=== PATIENT | male | born 1990 | race African-American/Black ===

== ENCOUNTER 2017-04-03 11:49 | Emergency (ER) | payer SELFPAY ==
[~2017-04-03] VITALS: Ht 188 cm; Wt 108.4 kg
[~2017-04-03 11:49] MED LIST: CLIN300C8 PO; HYDR-971 PO
--- NOTE | 2017-04-03 12:34 | PHYS DOC ---
General Chief Complaint: SORE THROAT Stated Complaint: SORE THROAT Time Seen by MD: 11:50 Source: patient Exam Limitations: no limitations Problems: History of Present Illness Initial Comments Patient is a 26-year-old male who comes to the ED complaining of sore throat. Patient states for the past 3-4 days he's had worsening sore throat and ear pain. He's had mild headache and some nausea no measured fever chest pain and trouble breathing neck stiffness rash. He says he was released yesterday from a 5 day inpatient treatment at [facility] for psychiatric issues. States he quit smoking cigarettes a few days ago denies illicit drugs or alcohol use. No trouble breathing no pre-arrival treatment ED vital signs are normal Timing/Duration: last week Severity: moderate Location: ear (R), ear (L), throat Prearrival Treatment: no prearrival treatment Modifying Factors: improves with other Associated Symptoms: sore throat, other Allergies: Coded Allergies: Penicillins (Verified Allergy, Unknown, 01/03/17) Past Medical History Medical History: asthma (anxiety, depression) Surgical History: noncontributory Social History Smoker: quit less than 1 year Alcohol: occasionally Drugs: none Constitutional: denies chills, denies diaphoresis, denies fever, denies malaise Eyes: denies blindness, denies blurred vision, denies drainage Ears: denies dizziness, pain, denies tinnitus, denies bloody discharge, denies clear discharge Nose: denies congestion, denies epistaxis, denies pain Mouth: denies loose teeth, denies pain, denies swelling Throat: see HPI Respiratory: denies cough, denies shortness of breath, denies wheezing Cardiovascular: denies chest pain, denies palpitations, denies syncope Gastrointestinal: see HPI, denies abdominal pain Musculoskeletal: denies back pain, denies joint swelling, denies neck pain Neurological: denies headache, denies numbness, denies paresthesia Physical Exam General Appearance: mild distress, obese Eyes: bilateral eye PERRL, bilateral eye EOMI, bilateral eye other ( conjunctival injection) Ears: bilateral ear other (serous fluid noted bilaterally with excess cerumen in the right canal) Nose: normal inspection Mouth/Throat: other (unable to visualize tonsils are pharynx with patient level of cooperation) Neck: supple, trachea midline Cardiovascular/Respiratory: normal peripheral pulses, normal breath sounds, no respiratory distress Neurologic/Psychiatric: 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 [id number] Tylenol, ibuprofen, diphenhydramine, and/or analgesic throat sprays as needed. Prescription: Z-Mark, prednisone take as directed. Follow-up with her doctor in 5-7 days for recheck. Return to the ED with new or changing symptoms JENNA WHITESIDE DO Apr 03, 2017 12:34
[2017-04-03 12:42] VITALS: BP 137/74
[2017-04-03] MEDS ORDERED: KETOROLAC 60 MG/2 ML VIAL. IM ONE (12:45)
[2017-04-03] MEDS ORDERED: LIDO:MAALOX 1:1 20 ML SINGLE DOSE PO ONE (12:45)
== END 2017-04-03 12:50 | disposition home or self-care (01) ==
LOC: ER 11:49
DX: J02.9 Acute pharyngitis, unspecified (principal); H65.93 Unspecified nonsuppurative otitis media, bilateral; J45.909 Unspecified asthma, uncomplicated; Z87.891 Personal history of nicotine dependence; Z88.0 Allergy status to penicillin
CPT/HCPCS: 87070; 87880; 96372; 99283; J1885

== ENCOUNTER 2017-04-05 02:46 | Emergency (ER) | payer SELFPAY ==
[~2017-04-05] VITALS: Ht 188 cm; Wt 108.4 kg
[2017-04-05 02:46] VITALS: BP 117/69
--- NOTE | 2017-04-05 03:26 | PHYS DOC ---
Past History Past Medical History: Anxiety, Asthma, Depression Past Surgical History: No Surgical History Alcohol Use: Occasionally Drug Use: Marijuana Adult General Chief Complaint Chief Complaint: SORE THROAT HPI HPI Patient is a pleasant 26-year-old male with a history of gastritis, asthma, bipolar disorder, prior suicide attempt, anxiety and recently diagnosed HIV presents with a 6 day history of sore throat who is presently on antibiotics day 3 of Z-Mark daily prednisone with continued sore throat and feeling that he is dehydrated. He denies fever denies change in his voice, denies anterior neck swelling but he says it hurts to swallow and he hasn't been eating or drinking as much. He does not know his CD4 count, he does not know his viral load, he is a newly diagnosed patient with follow-up tomorrow with his primary care doctor. Denies primarily for symptomatic care for sore throat and his chart is not dehydrated. He denies any recent travel outside the country, he says the main gotten HIV from sexual activity. Review of Systems Review of Systems Constitutional: Subjective fevers and chills Eyes: Denies change in visual acuity, redness, or eye pain [] HENT: He complains of sore throat without change in voice Respiratory: Denies cough or shortness of breath [] Cardiovascular: No additional information not addressed in HPI [] GI: Denies abdominal pain, nausea, vomiting, bloody stools or diarrhea [] : Denies dysuria or hematuria [] Musculoskeletal: Denies back pain or joint pain [] Integument: Denies rash or skin lesions [] Neurologic: Denies headache, he does feel generally weak although is no focal neurologic deficits. Allergies Allergies Allergies Coded Allergies Type Severity Reaction Last Updated Verified Penicillins Allergy Unknown 01/03/17 Yes Physical Exam Physical Exam Constitutional: Well developed, well nourished, no acute distress, patient is a little upset he feels tired but nontoxic. HENT: Normocephalic, atraumatic, bilateral external ears normal, oropharynx moist, she has mild erythema with mild tonsillar hypertrophy no clear exudates no evidence of peritonsillar abscess or retropharyngeal abscess buccal mucosal cellulitis or Tj's angina. Is no anterior bogginess to the trachea doubt bacterial tracheitis is no evidence of candidiasis right TM is occluded by wax and left TM unremarkable Eyes: PERRLA, EOMI, conjunctiva normal, no discharge. [] Neck: Normal range of motion, no tenderness, supple, no stridor. [] Cardiovascular:Heart rate regular rhythm, no murmur [] Lungs & Thorax: Bilateral breath sounds clear to auscultation [] Skin: Warm, dry, no erythema, no rash. [] Neurologic: Alert and oriented X 3, normal motor function, normal sensory function, no focal deficits noted. [] Psychologic: Affect normal, judgement normal, mood normal. [] Current Patient Data Lab Results Nursery Laboratory Tests 04/05/17 03:30: Group A Streptococcus Rapid Negative EKG EKG [] Radiology/Procedures Radiology/Procedures [] Course & Med Decision Making Course & Med Decision Making Pertinent Labs and Imaging studies reviewed. (See chart for details) patient with new the diagnosed HIV does not know CD4 count or viral load afebrile at this time the change in voice no obvious signs of candidiasis on physical exam. Patient with a sore throat 6 days likely viral nature negative strep throat test and given steroids and fluids patient feels markedly better. He has follow- up tomorrow with his doctor to review his results of CD4 count and last viral load and starting on empiric HIV treatment. Advise this patient that he may require EGD to rule out esophagitis secondary to candidiasis versus esophageal reflux disease. Impression: Pharyngitis likely viral etiology disposition: PCP follow-up tomorrow as scheduled. Continue antibiotics as described use oral Tylenol or Motrin for discomfort and follow up if you have any questions or concerns. [] Dragon Disclaimer Dragon Disclaimer This chart was dictated in whole or in part using Voice Recognition software in a busy, high-work load, and often noisy Emergency Department environment. It may contain unintended and wholly unrecognized errors or omissions. Departure Departure: Impression: Primary Impression: Pharyngitis Disposition: 01 HOME, SELF-CARE Condition: IMPROVED Referrals: PCPJOSH (PCP) Patient Instructions: Viral and Bacterial Pharyngitis Additional Instructions: This return for any new or increasing symptoms, change in voice anterior neck fullness or stiffness. Written one at 102.2 despite treatment or if you have any questions or concerns. Scripts Doxylamine/Pseudoephedrine/Dm (LORTUSS DM LIQUID) 473 Ml Liquid 473 ML PO TID for 7 Days, LIQUID Prov: ELIAS MENEZES MD 04/05/17 ELIAS MENEZES MD Apr 05, 2017 03:26
[2017-04-05] MEDS ORDERED: IV NORMAL SALINE 1,000ML 1,000 ML IV ONE (03:30)
[2017-04-05] MEDS ORDERED: DEXAMETHASONE SOD PHOS 10 MG/ML VIAL IV ONE (03:30)
[2017-04-05 04:05] LABS: INFLUENZA A PATIENT NEGATIVE (NEGATIVE); INFLUENZA B PATIENT NEGATIVE (NEGATIVE)
[2017-04-05] MEDS ORDERED: [UNRECOGNIZED DRUG - CODE] PO (04:11)
== END 2017-04-05 04:25 | disposition home or self-care (01) ==
LOC: ER 02:46
DX: J02.9 Acute pharyngitis, unspecified (principal); E86.0 Dehydration; J45.909 Unspecified asthma, uncomplicated; F12.10 Cannabis abuse, uncomplicated; Z88.0 Allergy status to penicillin
CPT/HCPCS: 87070; 87804; 87880; 96361; 96374; 99284; J1100; J7030

== ENCOUNTER 2017-06-06 23:17 | Emergency (ER) | payer MEDICAID ==
[~2017-06-06 23:17] MED LIST changes: +[UNRECOGNIZED DRUG - CODE] PO
[2017-06-07 00:16] LABS: BASO # 0.1 x10^3/uL (0.0-0.2); BASO % 1 % (0-3); EOS # 0.1 x10^3/uL (0.0-0.7); EOS % 2 % (0-3); HEMOGLOBIN 14.4 g/dL (13.0-17.5); LYMPH % 41 % (24-48); MEAN CORPUSCULAR HEMOGLOBIN 30 pg (25-35); MEAN CORPUSCULAR HGB CONC 34 g/dL (31-37); MEAN CORPUSCULAR VOLUME 89 fL (79-100); MONO # 0.7 x10^3/uL (0.0-1.1); MONO % 10 % (0-9); NEUT # 3.4 x10^3uL (1.8-7.7); NEUT % 46 % (31-73); PLATELET COUNT 302 x10^3/uL (140-400); RED BLOOD COUNT 4.73 x10^6/uL (4.30-5.70); RED CELL DISTRIBUTION WIDTH 13.9 % (11.5-14.5); WHITE BLOOD COUNT 7.3 x10^3/uL (4.0-11.0)
[2017-06-07 00:28] LABS: ACETAMIN < 2.0 mcg/mL (10-30); SALIC 1.9 mg/dL (2.8-20.0)
[2017-06-07 00:29] LABS: ALBUMIN 3.7 g/dL (3.4-5.0); ALBUMIN/GLOBULIN RATIO 0.8 (1.0-1.7); CREATININE 1.5 mg/dL (0.7-1.3); ETHANOL < 10 mg/dL (0-10); GFR 66.9; POTASSIUM 3.5 mmol/L (3.5-5.1); TOTAL BILIRUBIN 0.2 mg/dL (0.2-1.0); TOTAL PROTEIN 8.2 g/dL (6.4-8.2)
[2017-06-07 01:42] LABS: AMPHETAMINE/METHAMPHETAMINE NEG (NEG); BARBITURATES NEG (NEG); BENZODIAZEPINES NEG (NEG); CANNABINOIDS POS (NEG); COCAINE POS (NEG); METHADONE NEG (NEG); OPIATES NEG (NEG); PHENCYCLIDINE NEG (NEG)
--- NOTE | 2017-06-07 01:58 | ED.ADGEN ---
Past History Past Medical History: Anxiety, Bipolar, Depression Past Surgical History: No Surgical History Alcohol Use: None Drug Use: None Adult General Chief Complaint Chief Complaint suicidal ideation HPI HPI Patient is a 27 y/o male who states he always has suicidal thoughts. today they were worse and he took a knife to start cutting his left forearm. mom took the knife away. pt states he tried cutting himself 2 years ago. he was in [place] in february and started seeing a psychiatrist after that. He thinks he needs to be admitted because he is afraid he will try again Review of Systems Review of Systems Constitutional: Denies fever or chills [] Eyes: Denies change in visual acuity, redness, or eye pain [] HENT: Denies nasal congestion or sore throat [] Respiratory: Denies cough or shortness of breath [] Cardiovascular: No additional information not addressed in HPI [] GI: Denies abdominal pain, nausea, vomiting, bloody stools or diarrhea [] : Denies dysuria or hematuria [] Musculoskeletal: Denies back pain or joint pain [] Integument: Denies rash or skin lesions [] Neurologic: Denies headache, focal weakness or sensory changes [] Endocrine: Denies polyuria or polydipsia PSYCH: suicidal thoughts Current Medications Current Medications Current Medications Medications (Trade) Dose Ordered Sig/Peter Start Time Stop Time Status Last Admin Dose Admin Alprazolam (Xanax) 0.5 mg 1X ONCE 06/07/17 03:00 06/07/17 03:02 DC 06/07/17 02:48 0.5 MG Allergies Allergies Allergies Coded Allergies Type Severity Reaction Last Updated Verified Penicillins Allergy Unknown 01/03/17 Yes Physical Exam Physical Exam Constitutional: Well developed, well nourished, no acute distress, non-toxic appearance. [] HENT: Normocephalic, atraumatic, bilateral external ears normal, oropharynx moist, no oral exudates, nose normal. [] Eyes: PERRLA, EOMI, conjunctiva normal, no discharge. [] Neck: Normal range of motion, no tenderness, supple, no stridor. [] Cardiovascular:Heart rate regular rhythm, no murmur [] Lungs & Thorax: Bilateral breath sounds clear to auscultation [] Abdomen: Bowel sounds normal, soft, no tenderness, no masses, no pulsatile masses. [] Skin: Warm, dry, no erythema, no rash. superficial abrasion to left mid volar forearm Back: No tenderness, no CVA tenderness. [] Extremities: No tenderness, no cyanosis, no clubbing, ROM intact, no edema. [] Neurologic: Alert and oriented X 3, normal motor function, normal sensory function, no focal deficits noted. [] Psychologic: flat affect , judgement normal, depressed. Current Patient Data Vital Signs Vital Signs Date Time Temp Pulse Resp B/P (MAP) Pulse Ox O2 Delivery O2 Flow Rate FiO2 06/06/17 23:30 98.5 83 18 99 Room Air Lab Results Laboratory Tests Test 06/06/17 00:01 06/06/17 01:06 White Blood Count 7.3 x10^3/uL (4.0-11.0) Red Blood Count 4.73 x10^6/uL (4.30-5.70) Hemoglobin 14.4 g/dL (13.0-17.5) Hematocrit 42.0 % (39.0-53.0) Mean Corpuscular Volume 89 fL (79-100) Mean Corpuscular Hemoglobin 30 pg (25-35) Mean Corpuscular Hemoglobin Concent 34 g/dL (31-37) Red Cell Distribution Width 13.9 % (11.5-14.5) Platelet Count 302 x10^3/uL (140-400) Neutrophils (%) (Auto) 46 % (31-73) Lymphocytes (%) (Auto) 41 % (24-48) Monocytes (%) (Auto) 10 % (0-9) H Eosinophils (%) (Auto) 2 % (0-3) Basophils (%) (Auto) 1 % (0-3) Neutrophils # (Auto) 3.4 x10^3uL (1.8-7.7) Lymphocytes # (Auto) 3.0 x10^3/uL (1.0-4.8) Monocytes # (Auto) 0.7 x10^3/uL (0.0-1.1) Eosinophils # (Auto) 0.1 x10^3/uL (0.0-0.7) Basophils # (Auto) 0.1 x10^3/uL (0.0-0.2) Sodium Level 137 mmol/L (136-145) Potassium Level 3.5 mmol/L (3.5-5.1) Chloride Level 102 mmol/L (98-107) Carbon Dioxide Level 24 mmol/L (21-32) Anion Gap 11 (6-14) Blood Urea Nitrogen 14 mg/dL (8-26) Creatinine 1.5 mg/dL (0.7-1.3) H Estimated GFR (Cockcroft-Gault) 66.9 BUN/Creatinine Ratio 9 (6-20) Glucose Level 110 mg/dL (70-99) H Calcium Level 9.0 mg/dL (8.5-10.1) Total Bilirubin 0.2 mg/dL (0.2-1.0) Aspartate Amino Transferase (AST) 11 U/L (15-37) L Alanine Aminotransferase (ALT) 36 U/L (16-63) Alkaline Phosphatase 94 U/L (46-116) Total Protein 8.2 g/dL (6.4-8.2) Albumin 3.7 g/dL (3.4-5.0) Albumin/Globulin Ratio 0.8 (1.0-1.7) L Salicylates Level 1.9 mg/dL (2.8-20.0) L Salicylate Last Dose Date 05/30/17 Salicylate Last Dose Time 0700 Acetaminophen Level < 2.0 mcg/mL (10-30) L Acetaminophen Last Dose Date 05/30/17 Acetaminophen Last Dose Time 0700 Ethyl Alcohol Level < 10 mg/dL (0-10) Urine Opiates Screen Neg (NEG) Urine Methadone Screen Neg (NEG) Urine Barbiturates Neg (NEG) Urine Phencyclidine Screen Neg (NEG) Urine Amphetamine/Methamphetamine Neg (NEG) Urine Benzodiazepines Screen Neg (NEG) Urine Cocaine Screen Pos (NEG) Urine Cannabinoids Screen Pos (NEG) Urine Ethyl Alcohol Neg (NEG) EKG EKG [] Radiology/Procedures Radiology/Procedures [] Course & Med Decision Making Course & Med Decision Making Pertinent Labs and Imaging studies reviewed. (See chart for details) pt was accepted for admission [] Final Impression Final Impression suicidal ideation[] Problems: Dragon Disclaimer Dragon Disclaimer This electronic medical record was generated, in whole or in part, using a voice recognition dictation system. JOE BENNETT MD Jun 07, 2017 01:58
[2017-06-07] MEDS ORDERED: ALPRAZolam 0.25 MG TABLET PO ONE (03:00)
[2017-06-07 05:35] VITALS: BP 133/85
== END 2017-06-07 05:45 ==
LOC: ER 23:17
DX: R45.851 Suicidal ideations (principal); F41.9 Anxiety disorder, unspecified; F31.9 Bipolar disorder, unspecified; Z88.0 Allergy status to penicillin
CPT/HCPCS: 36415; 80053; 80307; 85027; 99285; G0480; G0479

== ENCOUNTER 2017-08-09 17:58 | Emergency (ER) | payer SELFPAY ==
[~2017-08-09] VITALS: Ht 182.9 cm; Wt 113.4 kg
[2017-08-09] MEDS ORDERED: IV NORMAL SALINE 1,000ML 1,000 ML IV ONE (18:30)
[2017-08-09 18:31] VITALS: BP 128/77
[2017-08-09] MEDS ORDERED: KETOROLAC 15 MG/ML VIAL. IV ONE (19:15)
[2017-08-09 19:19] LABS: BASO % 1 % (0-3); EOS # 0.1 x10^3/uL (0.0-0.7); EOS % 1 % (0-3); HEMATOCRIT 43.9 % (39.0-53.0); HEMOGLOBIN 15.1 g/dL (13.0-17.5); LYMPH # 2.5 x10^3/uL (1.0-4.8); LYMPH % 35 % (24-48); MEAN CORPUSCULAR HEMOGLOBIN 31 pg (25-35); MEAN CORPUSCULAR HGB CONC 35 g/dL (31-37); MEAN CORPUSCULAR VOLUME 91 fL (79-100); MONO # 0.9 x10^3/uL (0.0-1.1); MONO % 13 % (0-9); NEUT # 3.6 x10^3uL (1.8-7.7); NEUT % 50 % (31-73); PLATELET COUNT 338 x10^3/uL (140-400); RED BLOOD COUNT 4.83 x10^6/uL (4.30-5.70); RED CELL DISTRIBUTION WIDTH 15.1 % (11.5-14.5); WHITE BLOOD COUNT 7.1 x10^3/uL (4.0-11.0)
[2017-08-09] MEDS ORDERED: AMOX500T PO (19:31)
--- NOTE | 2017-08-09 19:32 | PHYS DOC ---
Past History Past Medical History: Asthma, HIV Past Surgical History: No Surgical History Alcohol Use: None Drug Use: None Adult General Chief Complaint Chief Complaint: EARACHE/EAR PAIN HPI HPI Patient is a 27 year old M who presents with bilateral ear pain worse on the right. Cy describes fever sweats and chills over the past 2-3 days. He also describes nasal congestion and drainage. His condition is complicated by HIV positive status. Review of Systems Review of Systems Constitutional: Denies fever or chills [] Eyes: Denies change in visual acuity, redness, or eye pain [] HENT: Negative except history of present illness Respiratory: Denies cough or shortness of breath [] Cardiovascular: No additional information not addressed in HPI [] GI: Denies abdominal pain, nausea, vomiting, bloody stools or diarrhea [] : Denies dysuria or hematuria [] Musculoskeletal: Denies back pain or joint pain [] Integument: Denies rash or skin lesions [] Neurologic: Denies headache, focal weakness or sensory changes [] Endocrine: Denies polyuria or polydipsia [] Family History Family History Noncontributory Current Medications Current Medications Medications reviewed Current Medications Medications (Trade) Dose Ordered Sig/Peter Start Time Stop Time Status Last Admin Dose Admin Ketorolac Tromethamine (Toradol) 15 mg 1X ONCE 08/09/17 19:15 08/09/17 19:16 DC 08/09/17 19:05 15 MG Sodium Chloride 1,000 ml @ 1,000 mls/hr 1X ONCE 08/09/17 18:30 08/09/17 19:29 08/09/17 19:05 1,000 MLS/HR Allergies Allergies Allergies Coded Allergies Type Severity Reaction Last Updated Verified Penicillins Allergy Unknown 08/09/17 Yes Physical Exam Physical Exam Constitutional: Well developed, well nourished, no acute distress, non-toxic appearance. [] HENT: Normocephalic, atraumatic, bilateral TM erythema mild to moderate bilateral nasal congestion with mild drainage. Eyes: EOMI, conjunctiva normal, no discharge. [] Neck: Normal range of motion, no tenderness, supple, no stridor. [] Cardiovascular:Heart rate regular rhythm, no murmur [] Lungs & Thorax: Bilateral breath sounds clear to auscultation [] Abdomen: Bowel sounds normal, soft, no tenderness, no masses, no pulsatile masses. [] Skin: Warm, dry, no erythema, no rash. [] Neurologic: Alert and oriented X 3, normal motor function, normal sensory function, no focal deficits noted. [] Psychologic: Affect normal, judgement normal, mood normal. [] Current Patient Data Vital Signs Vital Signs Date Time Temp Pulse Resp B/P (MAP) Pulse Ox O2 Delivery O2 Flow Rate FiO2 08/09/17 18:31 100.6 106 16 98 Room Air Lab Results Laboratory Tests Test 08/09/17 18:55 White Blood Count 7.1 x10^3/uL (4.0-11.0) Red Blood Count 4.83 x10^6/uL (4.30-5.70) Hemoglobin 15.1 g/dL (13.0-17.5) Hematocrit 43.9 % (39.0-53.0) Mean Corpuscular Volume 91 fL (79-100) Mean Corpuscular Hemoglobin 31 pg (25-35) Mean Corpuscular Hemoglobin Concent 35 g/dL (31-37) Red Cell Distribution Width 15.1 % (11.5-14.5) H Platelet Count 338 x10^3/uL (140-400) Neutrophils (%) (Auto) 50 % (31-73) Lymphocytes (%) (Auto) 35 % (24-48) Monocytes (%) (Auto) 13 % (0-9) H Eosinophils (%) (Auto) 1 % (0-3) Basophils (%) (Auto) 1 % (0-3) Neutrophils # (Auto) 3.6 x10^3uL (1.8-7.7) Lymphocytes # (Auto) 2.5 x10^3/uL (1.0-4.8) Monocytes # (Auto) 0.9 x10^3/uL (0.0-1.1) Eosinophils # (Auto) 0.1 x10^3/uL (0.0-0.7) Basophils # (Auto) 0.0 x10^3/uL (0.0-0.2) Course & Med Decision Making Course & Med Decision Making Pertinent Labs and Imaging studies reviewed. (See chart for details) Cy declined flu swab and wish to leave prior to completion of his labs. He was started on oral antibiotics and was given a prescription for antibiotics. Dragon Disclaimer Dragon Disclaimer This chart was dictated in whole or in part using Voice Recognition software in a busy, high-work load, and often noisy Emergency Department environment. It may contain unintended and wholly unrecognized errors or omissions. Departure Departure: Impression: Primary Impression: Bilateral otitis media with effusion Additional Impression: Acute rhinitis Disposition: 01 HOME, SELF-CARE Condition: STABLE Referrals: DARIUS MONTES (PCP) Patient Instructions: Otitis Media with Effusion Additional Instructions: Cy was seen in the emergency department for ear pain. No emergency medical condition was found on history or physical exam. He was started on oral antibiotics for ear infections in the right and left ear. He was also advised to use nasal saline rinses and nasal steroid spray. He was advised return to the emergency room if he develops new or worsening symptoms. Is also advised follow-up with his primary care doctor in the next 3-5 days for further management. Scripts Amoxicillin (AMOXICILLIN) 500 Mg Tablet 2 TAB PO BID, #40 TAB Prov: GEORGETTE CARTER MD 08/09/17 Problem Qualifiers Additional Impression: Acute rhinitis Rhinitis type: unspecified Qualified Codes: J00 - Acute nasopharyngitis [ common cold] GEORGETTE CARTER MD Aug 09, 2017 19:32
[2017-08-09 19:33] LABS: ALBUMIN 3.7 g/dL (3.4-5.0); ALBUMIN/GLOBULIN RATIO 0.8 (1.0-1.7); CREATININE 1.4 mg/dL (0.7-1.3); GFR 72.5; TOTAL BILIRUBIN 0.2 mg/dL (0.2-1.0); TOTAL PROTEIN 8.1 g/dL (6.4-8.2)
[2017-08-09] MEDS ORDERED: AMOXICILLIN 250 MG CAPSULE PO ONE (19:45)
== END 2017-08-09 19:40 | disposition home or self-care (01) ==
LOC: ER 17:58
DX: H65.93 Unspecified nonsuppurative otitis media, bilateral (principal); J00 Acute nasopharyngitis [common cold]; J45.909 Unspecified asthma, uncomplicated; Z21 Asymptomatic human immunodeficiency virus [HIV] infection status; Z88.0 Allergy status to penicillin
CPT/HCPCS: 36415; 80053; 83605; 85025; 96361; 96374; 99284; J1885; J7030

== ENCOUNTER 2018-03-05 10:39 | Emergency (ER) | payer MEDICAID ==
[~2018-03-05] VITALS: Ht 182.9 cm; Wt 111.6 kg
[~2018-03-05 10:39] MED LIST changes: +AMOX500T PO
[2018-03-05] MEDS ORDERED: HYDR-971 PO (11:49)
[2018-03-05] MEDS ORDERED: CEPH-264 PO (11:49)
--- NOTE | 2018-03-05 11:49 | PHYS DOC ---
Past History Past Medical History: Asthma, HIV, Other Past Surgical History: No Surgical History Alcohol Use: Occasionally Drug Use: Marijuana Adult General Chief Complaint Chief Complaint: SKIN PROBLEM HPI HPI 27-year-old male patient with history of HIV complaining of painful lesion in medial side of right thigh for months that getting more painful for the last 1 month. He denies drainage of pus or erythema, fever and chills, history of MRSA abscesses. Patient states he had this problem for several years off and on. Patient did not follow-up with his HIV clinic regarding this problem. Review of Systems Review of Systems Constitutional: Denies fever or chills [] Eyes: Denies change in visual acuity, redness, or eye pain [] HENT: Denies nasal congestion or sore throat [] Respiratory: Denies cough or shortness of breath [] Cardiovascular: No additional information not addressed in HPI [] GI: Denies abdominal pain, nausea, vomiting, bloody stools or diarrhea [] : Denies dysuria or hematuria [] Musculoskeletal: Denies back pain or joint pain [] Integument: Reports a skin lesion] Neurologic: Denies headache, focal weakness or sensory changes [] Endocrine: Denies polyuria or polydipsia [] All other systems were reviewed and found to be within normal limits, except as documented in this note. Current Medications Current Medications Current Medications Medications (Trade) Dose Ordered Sig/Peter Start Time Stop Time Status Last Admin Dose Admin Acetaminophen/ Hydrocodone Bitart (Lortab 5/325) 1 tab 1X ONCE 03/05/18 12:10 03/05/18 12:11 Allergies Allergies Allergies Coded Allergies Type Severity Reaction Last Updated Verified Penicillins Allergy Unknown 08/09/17 Yes Physical Exam Physical Exam Constitutional: Well developed, well nourished, mild distress, non-toxic appearance. [] HENT: Normocephalic, atraumatic Eyes: PERRLA, EOMI, conjunctiva normal, no discharge. [] Neck: Normal range of motion, no tenderness, supple, no stridor. [] Cardiovascular:Heart rate regular rhythm, no murmur [] Lungs & Thorax: Bilateral breath sounds clear to auscultation []] Back: No tenderness, no CVA tenderness. [] Extremities: 2x 2 cm dermoid cyst in upper right medial thigh mild tenderness without fluctuation or erythema or sign of infection Neurologic: Alert and oriented X 3, normal motor function, normal sensory function, no focal deficits noted. [] Psychologic: Anxious, judgement normal, mood normal. [] Current Patient Data Vital Signs Vital Signs Date Time Temp Pulse Resp B/P (MAP) Pulse Ox O2 Delivery O2 Flow Rate FiO2 03/05/18 10:39 98.1 98 18 96 Room Air EKG EKG [] Radiology/Procedures Radiology/Procedures [] Course & Med Decision Making Course & Med Decision Making Evaluation of patient in ER showed 27-year-old male patient with history of HIV complaining of a tender mass in medial side of right time for 4 months and asking for removing or opening the abscess today. Patient did not have abscess or acute infection and instructed to follow-up with HIV clinic. Dragon Disclaimer Dragon Disclaimer This electronic medical record was generated, in whole or in part, using a voice recognition dictation system. Departure Departure: Impression: Primary Impression: Sebaceous cyst Additional Impressions: HIV (human immunodeficiency virus infection) Anxiety Disposition: HOME, SELF-CARE (At ) Condition: IMPROVED Referrals: DARIUS MONTES (PCP) Patient Instructions: Epidermal Cyst Additional Instructions: Follow-up with your HIV clinic in 2 or 3 days Return to ER if not getting better Scripts Cephalexin (KEFLEX) 500 Mg Capsule 1 CAP PO TID, #30 CAP Prov: GRAEME GARRIDO MD 03/05/18 Hydrocodone Bit/Acetaminophen (NORCO 5-325 TABLET) 1 Each Tablet 1 TAB PO PRN Q6HRS Y for PAIN, #14 TAB 0 Refills Prov: GRAEME GARRIDO MD 03/05/18 Problem Qualifiers GRAEME GARRIDO MD March 05, 2018 11:49
[2018-03-05 11:59] VITALS: BP 133/82
[2018-03-05] MEDS ORDERED: HYDROcodone/APAP 5/325MG 1 TAB TABLET PO ONE (12:10)
== END 2018-03-05 11:59 | disposition home or self-care (01) ==
LOC: ER 10:39
DX: L72.3 Sebaceous cyst (principal); Z21 Asymptomatic human immunodeficiency virus [HIV] infection status; F41.9 Anxiety disorder, unspecified; J45.909 Unspecified asthma, uncomplicated; F12.10 Cannabis abuse, uncomplicated; Z88.0 Allergy status to penicillin
CPT/HCPCS: 99283

== ENCOUNTER 2019-02-11 11:05 | Emergency (ER) | payer OTHER ==
[~2019-02-11] VITALS: Ht 182.9 cm; Wt 103.4 kg
[~2019-02-11 11:05] MED LIST changes: +CEPH-264 PO; +HYDR-3165 PO; -HYDR-971 PO
[2019-02-11 11:10] VITALS: BP 135/84
[2019-02-11] MEDS ORDERED: IV NORMAL SALINE 1,000ML 1,000 ML IV ONE (11:30)
--- NOTE | 2019-02-11 11:30 | PHYS DOC ---
Past History Past Medical History: Asthma, HIV, Other Past Surgical History: No Surgical History Alcohol Use: Occasionally Drug Use: Marijuana Adult General Chief Complaint Chief Complaint: DIARRHEA HPI HPI 28-year-old male presents with rectal bleeding. Patient states he has had rectal bleeding for 5 days. The first episode was bright red and the toilet was just blood. His most recent episode is mixed with diarrhea. He believes that the blood might be slightly darker, but does not say its maroon or black. He is not exactly sure. He does have rectal pain with defecation. The patient has also been having some epigastric abdominal pain today which is new. It is a crampy pain. The patient was seen in another emergency room yesterday for shortness of breath and did not mention his rectal bleeding to them. Patient has not been feeling dizzy. He is HIV positive. The patient was told on his last colonoscopy that he had precancerous cells. Patient denies nausea, vomiting , fever, or chills. Review of Systems Review of Systems Constitutional: Denies fever or chills [] Eyes: Denies change in visual acuity, redness, or eye pain [] HENT: Denies nasal congestion or sore throat [] Respiratory: Denies cough or shortness of breath [] Cardiovascular: No additional information not addressed in HPI [] GI: bloody stools with diarrhea. Epigastric abdominal pain. Denies nausea, vomiting. [] : Denies dysuria or hematuria [] Musculoskeletal: Denies back pain or joint pain [] Integument: Denies rash or skin lesions [] Neurologic: Denies headache, focal weakness or sensory changes [] Endocrine: Denies polyuria or polydipsia [] All other systems were reviewed and found to be within normal limits, except as documented in this note. Current Medications Current Medications Current Medications Medications (Trade) Dose Ordered Sig/Peter Start Time Stop Time Status Last Admin Dose Admin Sodium Chloride 1,000 ml @ 1,000 mls/hr 1X ONCE 02/11/19 11:30 02/11/19 12:29 UNV Allergies Allergies Allergies Coded Allergies Type Severity Reaction Last Updated Verified Penicillins Allergy Unknown 08/09/17 Yes Physical Exam Physical Exam Constitutional: Well developed, well nourished, no acute distress, non-toxic appearance. [] HENT: Normocephalic, atraumatic, bilateral external ears normal, oropharynx moist, no oral exudates, nose normal. [] Eyes: PERRLA, EOMI, conjunctiva normal, no discharge. [] Neck: Normal range of motion, no tenderness, supple, no stridor. [] Cardiovascular:Heart rate regular rhythm, no murmur [] Lungs & Thorax: Bilateral breath sounds clear to auscultation [] Abdomen: Bowel sounds normal, soft, no tenderness, no masses, no pulsatile masses. [] Skin: Warm, dry, no erythema, no rash. [] Back: No tenderness, no CVA tenderness. [] Extremities: No tenderness, no cyanosis, no clubbing, ROM intact, no edema. [] Neurologic: Alert and oriented X 3, normal motor function, normal sensory function, no focal deficits noted. [] Psychologic: Affect normal, judgement normal, mood normal. Rectal: Normal external exam with single skin tag, no obvious hemorrhoids. Digital rectal exam showed nonbloody stool in the rectal vault. No significant pain.[] EKG EKG [] Radiology/Procedures Radiology/Procedures [] Impressions: EXAM: Abdomen and pelvis CT with intravenous contrast. HISTORY: Nausea and vomiting. TECHNIQUE: Computed tomographic images of the abdomen and pelvis were obtained following the administration of 70 cc Omnipaque 300 intravenous contrast. Multiplanar reformatting was performed. *One or more of the following individualized dose reduction techniques were utilized for this examination: 1. Automated exposure control. 2. Adjustment of the mA and/or kV according to patient size. 3. Use of iterative reconstruction technique. COMPARISON: None. FINDINGS: Evaluation of the lower thorax demonstrates posterior dependent atelectasis. There are 3 hypodense lesions within the liver, the largest of which measures 3.4 cm with attenuation consistent with a cyst. There is fatty infiltration of the liver along the falciform ligament. The gallbladder, pancreas, spleen, adrenal glands and kidneys are unremarkable. There is circumferential mucosal thickening involving fluid-filled mid and distal small bowel and colon. The appendix is normal in appearance. There are multiple prominent lymph nodes throughout the root of the mesentery and pericecal distribution. No transition point is seen to suggest obstruction. There is no free air. The bladder is unremarkable.. No suspicious osseous lesion is seen. IMPRESSION: 1. Segmental mucosal thickening involving fluid-filled loops of mid small bowel and the colon, consistent with enterocolitis of infectious or inflammatory etiologies. There is suspected reactive lymphadenopathy throughout the root of the mesentery and pericecal distribution. 2. Hepatic cysts. Electronically signed by: Gladys Shelton MD (02/11/2019 12:25 PM) [facility] DICTATED AND SIGNED BY: GLADYS SHELTON MD DATE: 02/11/19 7104 CC: MEHUL SHAH DO; DARIUS MONTES ~ Course & Med Decision Making Course & Med Decision Making Pertinent Labs and Imaging studies reviewed. (See chart for details) The patient's CT is suggestive of enterocolitis of infectious or inflammatory origin. See official CT report for details. I will treat the patient with Flagyl for 10 days. I have also recommended the patient follow up with his primary physician and possibly GI. If this is not infectious in origin, the patient may need different medication and/or further workup. He may need another colonoscopy. His stool occult was positive for blood and his hemoglobin is normal. I do not believe the patient needs to be admitted to the hospital at this time. He is stable for discharge at this time. Patient was given 40 mEq of potassium for his mild hypokalemia. I have discussed the patient's results with his primary care physician. They will follow up with the patient. [] Dragon Disclaimer Dragon Disclaimer This electronic medical record was generated, in whole or in part, using a voice recognition dictation system. Departure Departure: Impression: Primary Impression: Enterocolitis Additional Impressions: Hypokalemia Rectal bleeding Disposition: HOME, SELF-CARE Condition: STABLE Referrals: DARIUS MONTES (PCP) Patient Instructions: Colitis Scripts Hydrocodone Bit/Acetaminophen (NORCO 5-325 TABLET) 1 Each Tablet 1 TAB PO PRN Q6HRS PRN for PAIN, #10 TAB 0 Refills Prov: MEHUL SHAH DO 02/11/19 Metronidazole (FLAGYL) 500 Mg Tablet 1 TAB PO TID for enterocolitis for 10 Days, #30 TAB Prov: MEHUL SHAH DO 02/11/19 Problem Qualifiers MEHUL SHAH DO Feb 11, 2019 11:30
[2019-02-11 11:44] LABS: BASO % 0 % (0-3); EOS % 0 % (0-3); HEMATOCRIT 45.1 % (39.0-53.0); HEMOGLOBIN 15.2 g/dL (13.0-17.5); LYMPH # 2.2 x10^3/uL (1.0-4.8); LYMPH % 37 % (24-48); MEAN CORPUSCULAR HEMOGLOBIN 30 pg (25-35); MEAN CORPUSCULAR HGB CONC 34 g/dL (31-37); MEAN CORPUSCULAR VOLUME 89 fL (79-100); MONO # 0.7 x10^3/uL (0.0-1.1); MONO % 12 % (0-9); NEUT % 51 % (31-73); PLATELET COUNT 351 x10^3/uL (140-400); RED BLOOD COUNT 5.08 x10^6/uL (4.30-5.70); RED CELL DISTRIBUTION WIDTH 13.4 % (11.5-14.5); WHITE BLOOD COUNT 5.9 x10^3/uL (4.0-11.0)
[2019-02-11 11:56] LABS: ALBUMIN 3.8 g/dL (3.4-5.0); ALBUMIN/GLOBULIN RATIO 0.8 (1.0-1.7); CALCIUM 9.5 mg/dL (8.5-10.1); CREATININE 1.3 mg/dL (0.7-1.3); GFR 78.4; POTASSIUM 3.3 mmol/L (3.5-5.1); TOTAL BILIRUBIN 0.5 mg/dL (0.2-1.0); TOTAL PROTEIN 8.8 g/dL (6.4-8.2)
[2019-02-11] MEDS ORDERED: IOHEXOL 300 MG/ML 75 ML VIAL. IV ONE (12:00)
--- NOTE | 2019-02-11 12:28 | RAD ---
EXAM: Abdomen and pelvis CT with intravenous contrast. HISTORY: Nausea and vomiting. TECHNIQUE: Computed tomographic images of the abdomen and pelvis were obtained following the administration of 70 cc Omnipaque 300 intravenous contrast. Multiplanar reformatting was performed. *One or more of the following individualized dose reduction techniques were utilized for this examination: 1. Automated exposure control. 2. Adjustment of the mA and/or kV according to patient size. 3. Use of iterative reconstruction technique. COMPARISON: None. FINDINGS: Evaluation of the lower thorax demonstrates posterior dependent atelectasis. There are 3 hypodense lesions within the liver, the largest of which measures 3.4 cm with attenuation consistent with a cyst. There is fatty infiltration of the liver along the falciform ligament. The gallbladder, pancreas, spleen, adrenal glands and kidneys are unremarkable. There is circumferential mucosal thickening involving fluid-filled mid and distal small bowel and colon. The appendix is normal in appearance. There are multiple prominent lymph nodes throughout the root of the mesentery and pericecal distribution. No transition point is seen to suggest obstruction. There is no free air. The bladder is unremarkable.. No suspicious osseous lesion is seen. IMPRESSION: 1. Segmental mucosal thickening involving fluid-filled loops of mid small bowel and the colon, consistent with enterocolitis of infectious or inflammatory etiologies. There is suspected reactive lymphadenopathy throughout the root of the mesentery and pericecal distribution. 2. Hepatic cysts. Electronically signed by: Gladys Shelton MD (02/11/2019 12:25 PM) [place] [id number]
[2019-02-11] MEDS ORDERED: HYDROmorphone PF 1 MG/ML DISP.SYRIN IV ONE (12:30)
[2019-02-11] MEDS ORDERED: ONDANSETRON PF 4 MG/2 ML VIAL. IV ONE (12:30)
[2019-02-11] MEDS ORDERED: POTASSIUM CHLORIDE 20 MEQ TABLET.ER. PO ONE (12:30)
[2019-02-11] MEDS ORDERED: METR500T PO (12:52)
[2019-02-11 12:55] LABS: FECAL OB PT POSITIVE (NEG)
[2019-02-11] MEDS ORDERED: HYDR-3165 PO (13:06)
== END 2019-02-11 13:15 | disposition home or self-care (01) ==
LOC: ER 11:05
DX: K52.9 Noninfective gastroenteritis and colitis, unspecified (principal); E87.6 Hypokalemia; K62.5 Hemorrhage of anus and rectum; J45.909 Unspecified asthma, uncomplicated; Z88.0 Allergy status to penicillin
CPT/HCPCS: 36415; 74177; 80053; 82274; 85025; 96361; 96374; 96375; 99285; J1170; J2405; Q9967; J7030

== ENCOUNTER 2019-04-13 20:05 | Emergency (ER) | payer OTHER ==
[~2019-04-13] VITALS: Ht 182.9 cm; Wt 96.8 kg
[~2019-04-13 20:05] MED LIST changes: +METR500T PO
[2019-04-13 20:15] VITALS: BP 141/85
--- NOTE | 2019-04-13 20:15 | ED.ADGEN ---
Past History Past Medical History: Asthma, HIV, Other Past Surgical History: No Surgical History Alcohol Use: Occasionally Drug Use: Marijuana Adult General Chief Complaint Chief Complaint ".. I got bad rectal pain.. but you can not examine me unless you give me some strong narcotics.. I usually go to .. because I ve had HIV and they take care of everything for me.. I notice I have some bright red blood in my last stool.. and it hurt bad.. I got some kind growth down there.. but I need some strong narcotics lst..." [facility] HPI Patient is a 28 year old male who presents with above hx and complaints rectal outlet bleeding and pain with defecation x several days. . Patient reports all his H IV care and maintenance care is done at . Patient currently refusing any exam and was given narcotics first. Advised patient he would not receive n arcotics until at least occurs recheck exam he stated he would go to . Take patient at least let me do a cursory exam however he refused. Patient denies history of constipation. Patient denies history of recent rectal sex. No recent travel. No specific ill contacts. Has hx of Asthma and Colitis. Review of Systems Review of Systems Constitutional: Denies fever or chills [] Eyes: Denies change in visual acuity, redness, or eye pain [] HENT: Denies nasal congestion or sore throat [] Respiratory: Denies cough or shortness of breath [] Cardiovascular: No additional information not addressed in [facility] [] GI: Denies abdominal pain, nausea, vomiting, diarrhea [.patient]complains of bright red blood and pain with defecation : Denies dysuria or hematuria [] Musculoskeletal: Denies back pain or joint pain [] Integument: Denies rash or skin lesions [] Neurologic: Denies headache, focal weakness or sensory changes [] Endocrine: Denies polyuria or polydipsia [] All other systems were reviewed and found to be within normal limits, except as documented in this note. Family History Family History Noncontributory Current Medications Current Medications See nursing for home meds Allergies Allergies Allergies Coded Allergies Type Severity Reaction Last Updated Verified Penicillins Allergy Unknown 04/13/19 Yes Physical Exam Physical Exam Constitutional: Moderate distress, non-toxic appearance. [] HENT: Normocephalic, atraumatic, bilateral external ears normal, oropharynx moist, no oral exudates, nose normal. [] Eyes: PERRLA, EOMI, conjunctiva normal, no discharge. [] Neck: Normal range of motion, no tenderness, supple, no stridor. [] Cardiovascular: Refused exam Lungs & Thorax: Refused exam Abdomen: Refuses exam[] Skin: Refused exam Back: Refused exam] Extremities: Am Lipitor without problem Neurologic: Alert and oriented X 3, normal motor function, normal sensory function, no focal deficits noted. [] Psychologic: Affect anxious, judgement lacks insight to medical care, mood depre ssed and angry Current Patient Data Vital Signs Vital Signs Date Time Temp Pulse Resp B/P (MAP) Pulse Ox O2 Delivery O2 Flow Rate FiO2 04/13/19 20:15 98.4 100 20 99 Room Air 04/13/19 20:15 141/85 (103) EKG EKG [] Radiology/Procedures Radiology/Procedures [] Course & Med Decision Making Course & Med Decision Making Pertinent Labs and Imaging studies reviewed. (See chart for details) Patient elected to refuse even a cursory exam. Stated he would follow-up at . Patient encourage return anytime to complete at least a cursory exam and further evaluation. [] Final Impression Final Impression 1. History of rectal pain with defecation 2. History of bright red blood with defecation[] Dragon Disclaimer Dragon Disclaimer This electronic medical record was generated, in whole or in part, using a voice recognition dictation system. Discharge Summary Visit Information Final Diagnosis Problems Medical Problems: (1) Rectal bleeding Status: Acute Brief Hospital Course Allergies Allergies Coded Allergies Type Severity Reaction Last Updated Verified Penicillins Allergy Unknown 04/13/19 Yes Vital Signs Vital Signs Date Time Temp Pulse Resp B/P (MAP) Pulse Ox O2 Delivery O2 Flow Rate FiO2 04/13/19 20:15 98.4 100 20 99 Room Air 04/13/19 20:15 141/85 (103) Brief Hospital Course Mr. Soto is a 28 old male who presented with out let rectal bleeding and pain. Refused exam. Wanted only IV narcotics. Elected to follow with his HIV clinic at . Discharge Information Condition at Discharge: Stable Disposition/Orders: D/C to Home Dischare Medications Active Scripts Active Reported Triumeq Tablet (Abacavir/Dolutegravir/Lamivudi) 1 Each Tablet 1 Each PO DAILY Dragon Disclaimer This chart was dictated in whole or in part using Voice Recognition software in a busy, high-work load, and often noisy Emergency Department environment. It may contain unintended and wholly unrecognized errors or omissions. ROBERT GILMAN MD Apr 13, 2019 20:15
[2019-04-13] MEDS ORDERED: ABAC1TAB13 PO (20:24)
== END 2019-04-13 20:32 | disposition home or self-care (01) ==
LOC: ER 20:05
DX: K62.89 Other specified diseases of anus and rectum (principal); K62.5 Hemorrhage of anus and rectum; J45.909 Unspecified asthma, uncomplicated; Z88.0 Allergy status to penicillin
CPT/HCPCS: 99281

== ENCOUNTER 2020-03-11 10:05 | Emergency (ER) | payer OTHER ==
[~2020-03-11] VITALS: Ht 182.9 cm; Wt 96.8 kg
[~2020-03-11 10:05] MED LIST changes: +ABAC1TAB13 PO
[2020-03-11 10:12] VITALS: BP 141/85
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
== END 2020-03-11 11:08 | disposition short-term general hospital (02) ==
LOC: ER 10:05 → EEVIPCON 10:05 → ER 11:08
DX: T74.21XA Adult sexual abuse, confirmed, initial encounter (principal); M54.2 Cervicalgia; K62.89 Other specified diseases of anus and rectum; J45.909 Unspecified asthma, uncomplicated; Z88.0 Allergy status to penicillin
CPT/HCPCS: 99285